=== PATIENT | male | born 1935 | race Caucasian/White ===

== ENCOUNTER → 2019-02-27 | Outpatient (CLI) | payer MEDICARE ==
[~2019-02-27] MED LIST: BIMA2.5D4 OP; BRIM5DRO12 OD; HCTZ12.5T PO; OMEP-83 PO; SAWP1CAP PO; SELE200T11 PO; ZINC50TA49 PO
--- NOTE | 2019-02-27 10:08 | Diagnostic Imaging Report ---
PROCEDURE: CT urinary tract, rule out kidney stone. TECHNIQUE: Multiple contiguous axial images were obtained through the abdomen and pelvis without the use of intravenous contrast. Auto Exposure Controls were utilized during the CT exam to meet ALARA standards for radiation dose reduction. INDICATION: Right flank pain. No prior studies are available for comparison. Imaging through lung bases does show some linear opacities in the right middle lobe and lingula consistent with atelectasis or scarring. The liver and gallbladder are unremarkable. No mass is detected. No biliary ductal dilatation is seen. Pancreas and spleen are unremarkable. Gas and fluid collection adjacent to the 2nd and 3rd portions of the duodenum as well as the 4th portion of the duodenum are noted suggestive of a diverticuli. No adrenal mass is detected. Both kidneys contain parapelvic cysts. There are numerous bilateral nonobstructing renal calculi measuring from approximately 1 mm to 3 mm in size. No definite ureteral calculi or hydronephrosis is seen. Aorta is heavily calcified but non-aneurysmal. Bowel loops are of normal caliber. There is no obstruction. There is diverticulosis of the sigmoid colon but no evidence of acute diverticulitis. Bladder is unremarkable. Prostate gland is enlarged measuring 4.7 x 5.8 cm. No free fluid or fluid collection is identified. Right femur does show some thickened trabecular pattern. Possibility of Paget's cannot be excluded. IMPRESSION: 1. Bilateral parapelvic cysts as well as bilateral nonobstructing nephrolithiasis. No ureteral calculi or hydronephrosis is detected. 2. Uncomplicated diverticulosis. 3. Prostatomegaly. 4. Sclerosis and thickened trabecula involving the right hip and proximal right femur. Paget's disease cannot be excluded. No other significant abnormality is seen. Dictated by: Dictated on workstation # [id number]
== END ==
LOC: RAD FS 09:28
PROVIDERS: ATTEND Nurse Practitioner Family
DX: N20.0 Calculus of kidney (principal); K57.30 Diverticulosis of large intestine without perforation or abscess without bleeding; N40.0 Benign prostatic hyperplasia without lower urinary tract symptoms
CPT/HCPCS: 74176

== ENCOUNTER → 2019-03-19 | Outpatient (CLI) | payer MEDICARE ==
--- NOTE | 2019-03-19 10:00 | Diagnostic Imaging Report ---
INDICATION: Low back pain. COMPARISON: None. FINDINGS: Three views of the lumbar column demonstrate normal alignment. There is no subluxation or fracture. Moderate to severe degenerative changes are seen throughout the disc spaces and facet joints. SI joints are symmetric. There is no osseous lesion. IMPRESSION: Moderate to severe degenerative changes. Dictated by: Dictated on workstation # [id number]
--- NOTE | 2019-03-19 10:13 | Diagnostic Imaging Report ---
Indication: Right shoulder pain. Comparison: None. 3 views of the right shoulder demonstrate mild degenerative changes of the glenohumeral joint. AC joint is intact. There is no fracture, dislocation or osseous lesion. Impression: Mild degenerative joint disease. Dictated by: Dictated on workstation # [id number]
== END ==
LOC: RAD FS 09:01
PROVIDERS: ATTEND Nurse Practitioner
DX: M43.06 Spondylolysis, lumbar region (principal); M19.011 Primary osteoarthritis, right shoulder
CPT/HCPCS: 72100; 73030

== ENCOUNTER → 2019-04-17 | Outpatient (CLI) | payer MEDICARE ==
--- NOTE | 2019-04-17 12:24 | Diagnostic Imaging Report ---
EXAMINATION: Supine abdomen at 11:53 a.m. INDICATION: Nephrolithiasis. Two supine views of the abdomen were obtained. FINDINGS: The previous CT abdomen and pelvis exam of 02/27/2019 noted small nonobstructive calculi within both kidneys but failed to show any evidence for obstruction of either collecting system by calculus. On this exam, there may still be a few punctate calcifications overlying the right kidney. Both kidneys are obscured by overlying bowel gas and fecal material, however. The suspected phleboliths in the pelvis seen on the prior study are again evident and no different. There is no mass or organomegaly. There does appear to be at least a moderate amount of fecal material in the ascending transverse and descending colon. The osseous structures are intact. The degenerative disc and bony disease at L4-L5 and L5-S1 seen previously does not appear to have progressed. IMPRESSION: The minute nonobstructive calculi within the kidneys seen on the previous CT abdomen/pelvis exam are difficult to appreciate on this study. If there is clinical concern regarding an acute obstruction of the collecting system, then repeat CT abdomen/pelvis exam should be obtained. Dictated by: Dictated on workstation # [id number]
== END ==
LOC: RAD FS 11:38
PROVIDERS: ATTEND Urology
DX: N20.0 Calculus of kidney (principal)
CPT/HCPCS: 74018

== ENCOUNTER → 2019-10-22 | Outpatient (CLI) | payer MEDICARE, OTHER ==
--- NOTE | 2019-10-22 11:29 | Diagnostic Imaging Report ---
Indication: Low back pain Lumbar spine AP and lateral views of lumbar spine shows a slight spondylolisthesis at L3-L4 and L4-L5. There is disc space narrowing at L4-L5 and L5-S1. There are osteophytes forming anteriorly and laterally throughout the lumbar spine. There is a very slight curvature of the lumbar spine convex the right. IMPRESSION: Spondylosis deformans. Minimal scoliosis. Degenerative disc changes L4-L5 and L5-S1 with grade 1 spondylolisthesis at L3-L4 and L4-L5. No acute abnormalities seen. Dictated by: Dictated on workstation # [id number]
== END ==
LOC: RAD FS 11:10
PROVIDERS: ATTEND Nurse Practitioner Family
DX: M47.816 Spondylosis without myelopathy or radiculopathy, lumbar region (principal); M51.17 Intervertebral disc disorders with radiculopathy, lumbosacral region; M43.16 Spondylolisthesis, lumbar region
CPT/HCPCS: 72100

== ENCOUNTER → 2019-11-23 | Outpatient (CLI) | payer MEDICARE, OTHER ==
--- NOTE | 2019-11-24 08:32 | Diagnostic Imaging Report ---
PROCEDURE: MRI lumbar spine. TECHNIQUE: Multiplanar, multisequence MRI of the lumbar spine was performed without contrast. INDICATION: Lower back pain. COMPARISON: CT dated 02/27/2019. FINDINGS: Since the previous CT abdomen and pelvis, there has been interval development of infiltrative soft tissue mass within the retroperitoneum of the left upper abdominal quadrant posteriorly. It measures approximately 5.3 x 6.3 cm in maximal axial dimension and extends through the left psoas muscle and into the spinal canal. The mass also extends through the spinal canal into the bilateral neural foramina of L2-L3 through L4-L5. As a result, there is severe spinal canal stenosis. This extends from approximately L2-L3 inferiorly to the L4 vertebral body level. Thecal sac is narrowed to approximately 1.2 mm in AP dimension (image 32, series 5) at the L3-L4 level. There is also significant abnormal marrow signal within several vertebral bodies, but greatest within the L2 vertebral body. Findings are consistent with intraosseous extension. There is no evidence of pathologic fracture. Evaluation of static alignment shows slight grade 1 anterolisthesis at the L3-L4 and L2-L3 levels. There is no evidence of jumped facets. Intervertebral disc heights show mild multilevel narrowing. There is also mild multilevel anterior and posterior disc bulging. Conus terminates at approximately the L1-L2 level. IMPRESSION: 1. Interval development of extensive infiltrative soft tissue mass of the posterior retroperitoneum of the left upper abdominal quadrant extending into the spinal canal of the lumbar spine and resulting in severe multilevel spinal canal stenosis. There is also multilevel bilateral neuroforaminal stenosis as well as significant intraosseous extension of the L2 vertebral body. Primary soft tissue malignancy versus metastatic disease is indeterminate, but the lesion does appear to be in a position amenable to CT-guided biopsy. Report will be called STEPHY Lloyd, 11/24/2019/cb [phone] Report was faxed/called to [facility] c/o George Mann by ronnie at 8:30AM. Dictated by: Dictated on workstation # [id number]
== END ==
LOC: RAD 13:47
PROVIDERS: ATTEND Nurse Practitioner
DX: M48.061 Spinal stenosis, lumbar region without neurogenic claudication (principal); M51.37 Other intervertebral disc degeneration, lumbosacral region; M79.89 Other specified soft tissue disorders
CPT/HCPCS: 72148

== ENCOUNTER → 2019-12-08 | Outpatient (CLI) | payer MEDICARE, OTHER ==
--- NOTE | 2019-12-08 15:30 | Diagnostic Imaging Report ---
INDICATION: B-cell lymphoma, initial staging. TECHNIQUE: The serum blood glucose level at the time of injection was 105 mg/dL. The patient was administered 11.5 mCi of F-18 FDG intravenously in the left antecubital location and PET imaging was performed from the top of the skull to the mid thigh. Noncontrast CT was also performed for attenuation correction and anatomic correlation. COMPARISON: No prior PET/CT study is available for comparison. Correlation is made with the recent MRI lumbar spine from 11/23/2019. FINDINGS: There is symmetric activity throughout the brain. There is a hypermetabolic 15 mm nodule in the right parotid gland with an SUV max of 12.3. Several other areas of increased uptake are identified in the posterior neck and supraclavicular regions bilaterally; however, this appears to be largely muscular. There could be a component of brown fat uptake as well. No definite correlate suspicious lymph nodes at these locations are identified. The mediastinum and lilliam are unremarkable. No pulmonary parenchymal hypermetabolism is identified. There has been significant reduction in the left paraspinous retroperitoneal soft tissue mass seen on a prior MRI of the lumbar spine on 11/23/2019. There is residual left para-aortic central retroperitoneal soft tissue measuring approximately 2.3 cm. This measured approximately 6.3 cm in AP diameter on the prior MRI. The remainder of the abdomen and pelvis demonstrates physiologic activity in the GI and tracts. There is a nonobstructing calculus in the left kidney. There does appear to be significant abnormal hypermetabolism involving soft tissue surrounding the proximal right femur and right hip. The SUV max is approximately 10. The abnormal soft tissue measures approximately 8.2 x 9.2 cm. There is also some activity noted within the right femoral neck and portions of the femoral head. A thickened trabecular pattern is identified at this location. No definite pathologic fracture is seen. IMPRESSION: 1. Hypermetabolic soft tissue nodule in the right parotid gland, perhaps an intraparotid lymph node. 2. Significant decrease in size of the retroperitoneal and left paraspinous soft tissue mass seen on the MRI lumbar spine from 11/23/2019. There is residual abnormal soft tissue in the left periaortic location at the level of the kidneys; however, again this is much improved. 3. Abnormal osseous as well as extraosseous uptake surrounding the right hip, as described. A dedicated MRI of the right hip with and without intravenous contrast would be useful for further characterization. Dictated by: Dictated on workstation # [id number]
== END ==
LOC: CARD 08:41
PROVIDERS: ATTEND Internal Medicine Hematology & Oncology
DX: C85.10 Unspecified B-cell lymphoma, unspecified site (principal); K11.8 Other diseases of salivary glands; R19.09 Other intra-abdominal and pelvic swelling, mass and lump; M79.9 Soft tissue disorder, unspecified
CPT/HCPCS: 78815; 93306; A9552

== ENCOUNTER → 2019-12-16 | Outpatient (CLI) | payer MEDICARE, OTHER ==
[2019-12-16 09:55] LABS: BASOPHILS % (AUTO) 1 % (0-10); EOSINOPHILS % (AUTO) 2 % (0-10); HEMATOCRIT 36 % (40-54); HEMOGLOBIN 12.3 G/DL (13.3-17.7); LYMPHOCYTES % (AUTO) 17 % (12-44); MEAN CORPUSCULAR HEMOGLOBIN 30 PG (25-34); MEAN CORPUSCULAR HGB CONC 34 G/DL (32-36); MEAN CORPUSCULAR VOLUME 89 FL (80-99); MEAN PLATELET VOLUME 12.1 FL (7.4-10.4); MONOCYTES % (AUTO) 12 % (0-12); NEUTROPHILS % (AUTO) 68 % (42-75); PLATELET COUNT 207 10^3/uL (130-400); WHITE BLOOD COUNT 9.4 10^3/uL (4.3-11.0)
[2019-12-16 09:56] LABS: BASOPHILS # (AUTO) 0.1 10^3/uL (0.0-0.1); EOSINOPHILS # (AUTO) 0.1 10^3/uL (0.0-0.3); LYMPHOCYTES # (AUTO) 1.6 X 10^3 (1.0-4.0); MONOCYTES # (AUTO) 1.1 X 10^3 (0.0-1.0); NEUTROPHILS # (AUTO) 6.4 X 10^3 (1.8-7.8)
[2019-12-16 10:40] LABS: BILIRUBIN,TOTAL 0.5 MG/DL (0.1-1.0); CALCIUM 9.5 MG/DL (8.5-10.1); CREATININE SERUM 1.78 MG/DL (0.60-1.30); POTASSIUM 4.2 MMOL/L (3.6-5.0)
[2019-12-16 10:41] LABS: ALBUMIN 3.8 GM/DL (3.2-4.5); TOTAL PROTEIN 6.5 GM/DL (6.4-8.2)
[2019-12-16 22:02] LABS: HEPATITIS C ANTIBODY C Non-Reactive (Non-Reactive)
== END ==
LOC: LAB FS 09:10
PROVIDERS: ATTEND Nurse Practitioner Adult Health
DX: C83.39 Diffuse large B-cell lymphoma, extranodal and solid organ sites (principal)
CPT/HCPCS: 36415; 80053; 80074; 83615; 85025

== ENCOUNTER → 2019-12-28 | Outpatient (CLI) | payer MEDICARE, OTHER ==
[2019-12-28 11:00] LABS: CREATININE SERUM 1.63 MG/DL (0.60-1.30); POTASSIUM 3.7 MMOL/L (3.6-5.0)
[2019-12-28 11:01] LABS: CALCIUM 9.2 MG/DL (8.5-10.1)
== END ==
LOC: LAB FS 09:47
PROVIDERS: ATTEND Nurse Practitioner Adult Health
DX: C83.39 Diffuse large B-cell lymphoma, extranodal and solid organ sites (principal)
CPT/HCPCS: 36415; 80048

== ENCOUNTER → 2019-12-31 | Outpatient (CLI) | payer MEDICARE, OTHER ==
[2019-12-31 12:12] LABS: CALCIUM 9.2 MG/DL (8.5-10.1); CREATININE SERUM 1.77 MG/DL (0.60-1.30); POTASSIUM 4.2 MMOL/L (3.6-5.0)
[2019-12-31 12:13] LABS: BASOPHILS % (AUTO) 1 % (0-10); EOSINOPHILS # (AUTO) 0.1 10^3/uL (0.0-0.3); EOSINOPHILS % (AUTO) 2 % (0-10); HEMATOCRIT 34 % (40-54); HEMOGLOBIN 11.4 G/DL (13.3-17.7); LYMPHOCYTES % (AUTO) 16 % (12-44); MEAN CORPUSCULAR HEMOGLOBIN 30 PG (25-34); MEAN CORPUSCULAR HGB CONC 33 G/DL (32-36); MEAN CORPUSCULAR VOLUME 90 FL (80-99); MEAN PLATELET VOLUME 12.4 FL (7.4-10.4); MONOCYTES # (AUTO) 0.9 X 10^3 (0.0-1.0); MONOCYTES % (AUTO) 15 % (0-12); NEUTROPHILS # (AUTO) 3.7 X 10^3 (1.8-7.8); NEUTROPHILS % (AUTO) 63 % (42-75); PLATELET COUNT 160 10^3/uL (130-400); WHITE BLOOD COUNT 5.9 10^3/uL (4.3-11.0)
[2019-12-31 16:26] LABS: URIC ACID 5.7 MG/DL (2.6-7.2)
== END ==
LOC: LAB FS 09:51
PROVIDERS: ATTEND Nurse Practitioner Adult Health
DX: C85.90 Non-Hodgkin lymphoma, unspecified, unspecified site (principal)
CPT/HCPCS: 36415; 80048; 84550; 85025

== ENCOUNTER → 2020-01-04 | Outpatient (CLI) | payer MEDICARE, OTHER ==
[2020-01-04 10:44] LABS: CALCIUM 8.8 MG/DL (8.5-10.1); CREATININE SERUM 1.83 MG/DL (0.60-1.30)
[2020-01-04 10:48] LABS: BASOPHILS % (AUTO) 0 % (0-10); HEMATOCRIT 34 % (40-54); HEMOGLOBIN 10.9 G/DL (13.3-17.7); LYMPHOCYTES % (AUTO) 7 % (12-44); MEAN CORPUSCULAR HEMOGLOBIN 29 PG (25-34); MEAN CORPUSCULAR HGB CONC 32 G/DL (32-36); MEAN CORPUSCULAR VOLUME 91 FL (80-99); MEAN PLATELET VOLUME 11.9 FL (7.4-10.4); MONOCYTES % (AUTO) 7 % (0-12); NEUTROPHILS % (AUTO) 66 % (42-75); PLATELET COUNT 161 10^3/uL (130-400); WHITE BLOOD COUNT 13.1 10^3/uL (4.3-11.0)
[2020-01-04 10:49] LABS: EOSINOPHILS # (AUTO) 0.1 10^3/uL (0.0-0.3); EOSINOPHILS % (AUTO) 1 % (0-10); MONOCYTES # (AUTO) 0.9 X 10^3 (0.0-1.0); NEUTROPHILS # (AUTO) 8.6 X 10^3 (1.8-7.8)
== END ==
LOC: LAB FS 09:23
PROVIDERS: ATTEND Nurse Practitioner Adult Health
DX: C83.39 Diffuse large B-cell lymphoma, extranodal and solid organ sites (principal)
CPT/HCPCS: 36415; 80048; 84550; 85025

== ENCOUNTER → 2020-01-07 | Outpatient (CLI) | payer MEDICARE, OTHER ==
[2020-01-07 10:51] LABS: CALCIUM 8.9 MG/DL (8.5-10.1); CREATININE SERUM 1.78 MG/DL (0.60-1.30)
== END ==
LOC: LAB FS 09:30
PROVIDERS: ATTEND Nurse Practitioner Adult Health
DX: C83.39 Diffuse large B-cell lymphoma, extranodal and solid organ sites (principal)
CPT/HCPCS: 36415; 80048

== ENCOUNTER → 2020-01-11 | Outpatient (CLI) | payer MEDICARE, OTHER ==
[2020-01-11 10:44] LABS: HEMATOCRIT 36 % (40-54); HEMOGLOBIN 11.6 G/DL (13.3-17.7); MEAN CORPUSCULAR HEMOGLOBIN 30 PG (25-34); MEAN CORPUSCULAR VOLUME 92 FL (80-99); WHITE BLOOD COUNT 7.4 10^3/uL (4.3-11.0)
[2020-01-11 10:45] LABS: BASOPHILS # (AUTO) 0.2 10^3/uL (0.0-0.1); BASOPHILS % (AUTO) 3 % (0-10); EOSINOPHILS # (AUTO) 0.1 10^3/uL (0.0-0.3); EOSINOPHILS % (AUTO) 2 % (0-10); LYMPHOCYTES # (AUTO) 1.1 X 10^3 (1.0-4.0); LYMPHOCYTES % (AUTO) 15 % (12-44); MEAN CORPUSCULAR HGB CONC 33 G/DL (32-36); MEAN PLATELET VOLUME 12.4 FL (7.4-10.4); MONOCYTES # (AUTO) 0.7 X 10^3 (0.0-1.0); MONOCYTES % (AUTO) 9 % (0-12); NEUTROPHILS # (AUTO) 5.3 X 10^3 (1.8-7.8); NEUTROPHILS % (AUTO) 71 % (42-75); PLATELET COUNT 108 10^3/uL (130-400)
[2020-01-11 10:56] LABS: CALCIUM 8.8 MG/DL (8.5-10.1); CREATININE SERUM 1.6 MG/DL (0.60-1.30); POTASSIUM 4.4 MMOL/L (3.6-5.0)
== END ==
LOC: LAB FS 10:18
PROVIDERS: ATTEND Nurse Practitioner Adult Health
DX: C83.39 Diffuse large B-cell lymphoma, extranodal and solid organ sites (principal)
CPT/HCPCS: 36415; 80048; 84550; 85025

== ENCOUNTER → 2020-01-12 | Outpatient (CLI) | payer MEDICARE, OTHER ==
[2020-01-12 10:41] LABS: BILIRUBIN,URINE NEGATIVE (NEGATIVE); CLARITY,URINE CLEAR; COLOR,URINE YELLOW; GLUCOSE, URINE (UA) NEGATIVE (NEGATIVE); KETONES,URINE NEGATIVE (NEGATIVE); LEUKOCYTE ESTERASE ,URINE NEGATIVE (NEGATIVE); NITRITE,URINE NEGATIVE (NEGATIVE); PH,URINE 6.5 (5-9); PROTEIN,URINE NEGATIVE (NEGATIVE)
[2020-01-12 10:42] LABS: SQUAMOUS EPITHELIAL CELL,UR RARE /HPF
== END ==
LOC: LAB FS 10:27
PROVIDERS: ATTEND Nurse Practitioner Adult Health
DX: R35.0 Frequency of micturition (principal)
CPT/HCPCS: 81000

== ENCOUNTER → 2020-01-21 | Outpatient (CLI) | payer MEDICARE, OTHER ==
[2020-01-21 11:39] LABS: CREATININE SERUM 1.77 MG/DL (0.60-1.30); POTASSIUM 4.2 MMOL/L (3.6-5.0)
[2020-01-21 11:40] LABS: BASOPHILS # (AUTO) 0.1 10^3/uL (0.0-0.1); BASOPHILS % (AUTO) 1 % (0-10); EOSINOPHILS # (AUTO) 0.1 10^3/uL (0.0-0.3); EOSINOPHILS % (AUTO) 1 % (0-10); HEMATOCRIT 32 % (40-54); HEMOGLOBIN 10.5 G/DL (13.3-17.7); LYMPHOCYTES # (AUTO) 1.3 X 10^3 (1.0-4.0); LYMPHOCYTES % (AUTO) 7 % (12-44); MEAN CORPUSCULAR HEMOGLOBIN 30 PG (25-34); MEAN CORPUSCULAR HGB CONC 33 G/DL (32-36); MEAN CORPUSCULAR VOLUME 89 FL (80-99); MEAN PLATELET VOLUME 12.3 FL (7.4-10.4); MONOCYTES # (AUTO) 1.6 X 10^3 (0.0-1.0); MONOCYTES % (AUTO) 9 % (0-12); NEUTROPHILS % (AUTO) 79 % (42-75); PLATELET COUNT 174 10^3/uL (130-400); WHITE BLOOD COUNT 17.6 10^3/uL (4.3-11.0)
== END ==
LOC: LAB FS 09:33
PROVIDERS: ATTEND Nurse Practitioner Adult Health
DX: C85.90 Non-Hodgkin lymphoma, unspecified, unspecified site (principal); I10 Essential (primary) hypertension
CPT/HCPCS: 36415; 80048; 85025

== ENCOUNTER → 2020-01-27 | Outpatient (CLI) | payer MEDICARE, OTHER ==
[2020-01-27 09:23] LABS: WHITE BLOOD COUNT 12.6 10^3/uL (4.3-11.0)
[2020-01-27 09:24] LABS: HEMATOCRIT 35 % (40-54); HEMOGLOBIN 11.1 G/DL (13.3-17.7); MEAN CORPUSCULAR HEMOGLOBIN 30 PG (25-34); MEAN CORPUSCULAR HGB CONC 32 G/DL (32-36); MEAN CORPUSCULAR VOLUME 92 FL (80-99); MEAN PLATELET VOLUME 10.9 FL (7.4-10.4); PLATELET COUNT 163 10^3/uL (130-400)
[2020-01-27 09:25] LABS: BASOPHILS # (AUTO) 0.1 10^3/uL (0.0-0.1); BASOPHILS % (AUTO) 1 % (0-10); EOSINOPHILS # (AUTO) 0.2 10^3/uL (0.0-0.3); EOSINOPHILS % (AUTO) 2 % (0-10); LYMPHOCYTES # (AUTO) 1.1 X 10^3 (1.0-4.0); LYMPHOCYTES % (AUTO) 9 % (12-44); MONOCYTES # (AUTO) 0.9 X 10^3 (0.0-1.0); MONOCYTES % (AUTO) 7 % (0-12); NEUTROPHILS # (AUTO) 9.4 X 10^3 (1.8-7.8); NEUTROPHILS % (AUTO) 74 % (42-75)
[2020-01-27 09:48] LABS: POTASSIUM 3.8 MMOL/L (3.6-5.0)
[2020-01-27 09:49] LABS: CREATININE SERUM 1.88 MG/DL (0.60-1.30)
== END ==
LOC: LAB FS 09:03
PROVIDERS: ATTEND Nurse Practitioner Adult Health
DX: C83.39 Diffuse large B-cell lymphoma, extranodal and solid organ sites (principal); I10 Essential (primary) hypertension
CPT/HCPCS: 36415; 80048; 85025

== ENCOUNTER 2020-02-04 10:34 | Outpatient (RCR) | payer MEDICARE, OTHER ==
[2019-12-24 11:35] LABS: CALCIUM 8.6 MG/DL (8.5-10.1); CREATININE SERUM 1.46 MG/DL (0.60-1.30); POTASSIUM 3.8 MMOL/L (3.6-5.0); URIC ACID 4.7 MG/DL (2.6-7.2)
[2020-01-14 10:08] LABS: BASOPHILS # (AUTO) 0.1 10^3/uL (0.0-0.1); BASOPHILS % (AUTO) 1 % (0-10); EOSINOPHILS # (AUTO) 0.1 10^3/uL (0.0-0.3); EOSINOPHILS % (AUTO) 1 % (0-10); HEMATOCRIT 34 % (40-54); LYMPHOCYTES # (AUTO) 1.2 10^3/uL (1.0-4.0); LYMPHOCYTES % (AUTO) 18 % (12-44); MEAN CORPUSCULAR HEMOGLOBIN 29 pg (25-34); MEAN CORPUSCULAR HGB CONC 32 g/dL (32-36); MEAN CORPUSCULAR VOLUME 91 fL (80-99); MEAN PLATELET VOLUME 11.7 fL (9.0-12.2); MONOCYTES # (AUTO) 0.7 10^3/uL (0.0-1.0); MONOCYTES % (AUTO) 11 % (0-12); NEUTROPHILS # (AUTO) 4.4 10^3/uL (1.8-7.8); NEUTROPHILS % (AUTO) 65 % (42-75); PLATELET COUNT 208 10^3/uL (130-400); WHITE BLOOD COUNT 6.8 10^3/uL (4.3-11.0)
[2020-01-14 10:28] LABS: ALBUMIN 3.7 GM/DL (3.2-4.5); BILIRUBIN,TOTAL 0.4 MG/DL (0.1-1.0); CREATININE SERUM 1.64 MG/DL (0.60-1.30); TOTAL PROTEIN 6.1 GM/DL (6.4-8.2); URIC ACID 7.1 MG/DL (2.6-7.2)
[~2020-02-04] VITALS: Ht 177.8 cm; Wt 76.2 kg
[~2020-02-04 10:34] MED LIST changes: +ACETAMINOPHEN 325 MG TAB (TYLENOL) CANCER CTR PO PRN; +CYCLOPHOSPHAMIDE INJECTION 800 MG in NS (IVPB) CANCER CENTER 250 ML IV SCH; +CYCLOPHOSPHAMIDE IV SCH; +FOSAPREPITANT (CANCER CENTER) 150 MG in NS (IVPB) CANCER CENTER ONLY 150 ML IV SCH; +NS IV 1000 ML (CANCER CTR) IV SCH; +NS IV SCH; +PEGFILGRASTIM 6 MG/0.6 ML ONPRO KIT SQ SCH; +PEGFILGRASTIM 6 MG/0.6ML NEULASTA SC SCH; +RITUXIMAB-ABBS 500 MG, RITUXIMAB-ABBS 200 MG in NS (IVPB) CANCER CENTER ONLY 150 ML IV SCH; +RITUXIMAB-ABBS 500 MG, RITUXIMAB-ABBS 300 MG in NS (IVPB) CANCER CENTER 186 ML IV SCH; +diphenhydrAMINE 25 MG TAB (BENADRYL) CANCER CENTER PO ONE; +diphenhydrAMINE 50 MG/ML INJ (CANCER CENTER) IV PRN; +vinCRIStine SULFATE 1 MG in NS (IVPB) CANCER CENTER 50 ML IV SCH
[2020-02-04 11:20] LABS: BASOPHILS # (AUTO) 0.1 10^3/uL (0.0-0.1); BASOPHILS % (AUTO) 1 % (0-10); EOSINOPHILS # (AUTO) 0.1 10^3/uL (0.0-0.3); EOSINOPHILS % (AUTO) 1 % (0-10); HEMATOCRIT 32 % (40-54); HEMOGLOBIN 10.5 g/dL (13.3-17.7); LYMPHOCYTES # (AUTO) 1.2 10^3/uL (1.0-4.0); LYMPHOCYTES % (AUTO) 19 % (12-44); MEAN CORPUSCULAR HEMOGLOBIN 30 pg (25-34); MEAN CORPUSCULAR HGB CONC 33 g/dL (32-36); MEAN CORPUSCULAR VOLUME 92 fL (80-99); MEAN PLATELET VOLUME 11.1 fL (9.0-12.2); MONOCYTES # (AUTO) 0.7 10^3/uL (0.0-1.0); MONOCYTES % (AUTO) 10 % (0-12); NEUTROPHILS # (AUTO) 4.3 10^3/uL (1.8-7.8); NEUTROPHILS % (AUTO) 67 % (42-75); PLATELET COUNT 197 10^3/uL (130-400); WHITE BLOOD COUNT 6.5 10^3/uL (4.3-11.0)
[2020-02-04 11:40] LABS: ALBUMIN 3.6 GM/DL (3.2-4.5); BILIRUBIN,TOTAL 0.4 MG/DL (0.1-1.0); CREATININE SERUM 1.61 MG/DL (0.60-1.30); POTASSIUM 3.9 MMOL/L (3.6-5.0)
[2020-02-04] MEDS ORDERED: diphenhydrAMINE 25 MG TAB (BENADRYL) CANCER CENTER PO ONE (11:49)
== END 2020-03-02 | disposition home or self-care (01) ==
LOC: ONC 10:34
PROVIDERS: ATTEND Internal Medicine Hematology & Oncology
DX: C85.10 Unspecified B-cell lymphoma, unspecified site (principal); M48.061 Spinal stenosis, lumbar region without neurogenic claudication; I10 Essential (primary) hypertension; K21.9 Gastro-esophageal reflux disease without esophagitis; Z98.890 Other specified postprocedural states
CPT/HCPCS: 36591; 80048; 80053; 83615; 84550; 85025; 96367; 96375; 96377; 96411; 96413; 96415; 96417; 99213; 99214; J2505

== ENCOUNTER 2020-02-11 09:48 | Outpatient (RCR) | payer MEDICARE, OTHER ==
[~2020-02-11 09:48] MED LIST changes: -ACETAMINOPHEN 325 MG TAB (TYLENOL) CANCER CTR PO PRN; -CYCLOPHOSPHAMIDE INJECTION 800 MG in NS (IVPB) CANCER CENTER 250 ML IV SCH; -CYCLOPHOSPHAMIDE IV SCH; -FOSAPREPITANT (CANCER CENTER) 150 MG in NS (IVPB) CANCER CENTER ONLY 150 ML IV SCH; -NS IV 1000 ML (CANCER CTR) IV SCH; -NS IV SCH; -PEGFILGRASTIM 6 MG/0.6 ML ONPRO KIT SQ SCH; -PEGFILGRASTIM 6 MG/0.6ML NEULASTA SC SCH; -RITUXIMAB-ABBS 500 MG, RITUXIMAB-ABBS 200 MG in NS (IVPB) CANCER CENTER ONLY 150 ML IV SCH; -RITUXIMAB-ABBS 500 MG, RITUXIMAB-ABBS 300 MG in NS (IVPB) CANCER CENTER 186 ML IV SCH; -diphenhydrAMINE 25 MG TAB (BENADRYL) CANCER CENTER PO ONE; -diphenhydrAMINE 50 MG/ML INJ (CANCER CENTER) IV PRN; -vinCRIStine SULFATE 1 MG in NS (IVPB) CANCER CENTER 50 ML IV SCH
[2020-02-11 10:24] LABS: CALCIUM 9.1 MG/DL (8.5-10.1); CREATININE SERUM 1.71 MG/DL (0.60-1.30); POTASSIUM 4.2 MMOL/L (3.6-5.0)
[2020-02-11 10:25] LABS: HEMOGLOBIN 10.9 G/DL (13.3-17.7); MEAN PLATELET VOLUME 12.1 FL (7.4-10.4); WHITE BLOOD COUNT 12.7 10^3/uL (4.3-11.0)
[2020-03-11] MEDS ORDERED: DEXA6TAB PO (13:40)
[2020-03-11] MEDS ORDERED: IVER3TAB2 PO (13:40)
[2020-03-11] MEDS ORDERED: AZIT250T12 PO (13:40)
[2020-03-11] MEDS ORDERED: RT-ALBUINH IH (13:40)
== END 2020-05-11 | disposition home or self-care (01) ==
LOC: LAB FS 09:48
PROVIDERS: ATTEND Internal Medicine Hematology & Oncology
DX: C83.30 Diffuse large B-cell lymphoma, unspecified site (principal)
CPT/HCPCS: 36415; 80048; 85027

== ENCOUNTER → 2020-02-18 | Outpatient (CLI) | payer MEDICARE, OTHER ==
[2020-02-18 11:30] LABS: HEMOGLOBIN 10.4 G/DL (13.3-17.7); WHITE BLOOD COUNT 5.6 10^3/uL (4.3-11.0)
[2020-02-18 11:31] LABS: MEAN PLATELET VOLUME 11.3 FL (7.4-10.4)
[2020-02-18 11:47] LABS: POTASSIUM 3.6 MMOL/L (3.6-5.0)
[2020-02-18 11:48] LABS: CALCIUM 8.9 MG/DL (8.5-10.1); CREATININE SERUM 1.66 MG/DL (0.60-1.30)
== END ==
LOC: LAB FS 11:08
PROVIDERS: ATTEND Internal Medicine Hematology & Oncology
DX: C83.30 Diffuse large B-cell lymphoma, unspecified site (principal)
CPT/HCPCS: 36415; 80048; 85027

== ENCOUNTER → 2020-02-23 | Outpatient (CLI) | payer MEDICARE, OTHER ==
--- NOTE | 2020-02-24 09:57 | Diagnostic Imaging Report ---
INDICATION: Non-Hodgkin's lymphoma. This study is performed for subsequent treatment strategy and response to treatment. TECHNIQUE: The serum blood glucose level at the time of injection was 98 mg/dL. The patient was administered 14 mCi of F-18 FDG intravenously in the left antecubital location and PET imaging was performed from the top of the skull to the mid thighs. A noncontrast CT was also performed for attenuation correction and anatomic correlation. COMPARISON: Prior PET/CT study from 12/08/2019. FINDINGS: There is symmetric activity throughout the brain. The hypermetabolic mass within the right parotid gland is again noted with an SUV max of 14. The low-level hypermetabolic lymph nodes in the posterior cervical chain on the prior exam are not appreciated on today's exam. No mediastinal or hilar hypermetabolism is identified. No pulmonary parenchymal hypermetabolism is identified. Physiologic activity throughout the GI and tracts of the abdomen and pelvis is noted. The previously noted hypermetabolism surrounding the right hip is no longer appreciated. IMPRESSION: Hypermetabolic mass in the right parotid gland, similar to the examination from December. No additional metabolic foci are seen. Specifically, the soft tissue in the left para-aortic location noted on the prior PET/CT study is no longer appreciated. Dictated by: Dictated on workstation # [id number]
== END ==
LOC: RAD 08:15
PROVIDERS: ATTEND Internal Medicine Hematology & Oncology
DX: C83.90 Non-follicular (diffuse) lymphoma, unspecified, unspecified site (principal); K11.8 Other diseases of salivary glands
CPT/HCPCS: 78815; A9552

== ENCOUNTER → 2020-02-25 | Outpatient (CLI) | payer MEDICARE, OTHER ==
[2020-02-25 11:03] LABS: HEMOGLOBIN 10.8 G/DL (13.3-17.7); MEAN PLATELET VOLUME 11.1 FL (7.4-10.4); WHITE BLOOD COUNT 5.9 10^3/uL (4.3-11.0)
[2020-02-25 11:29] LABS: CALCIUM 9.1 MG/DL (8.5-10.1); CREATININE SERUM 1.66 MG/DL (0.60-1.30); POTASSIUM 3.7 MMOL/L (3.6-5.0)
== END ==
LOC: LAB FS 10:47
PROVIDERS: ATTEND Internal Medicine Hematology & Oncology
DX: C83.30 Diffuse large B-cell lymphoma, unspecified site (principal)
CPT/HCPCS: 36415; 80048; 85027

== ENCOUNTER 2020-03-11 13:09 | Emergency (ER) | payer MEDICARE, OTHER ==
[~2020-03-11] VITALS: Ht 177.8 cm; Wt 72.5 kg
[2020-03-11] MEDS ORDERED: AZIT250T12 PO (13:40)
[2020-03-11] MEDS ORDERED: DEXA6TAB PO (13:40)
[2020-03-11] MEDS ORDERED: RT-ALBUINH IH (13:40)
[2020-03-11] MEDS ORDERED: IVER3TAB2 PO (13:40)
--- NOTE | 2020-03-11 13:42 | ED Respiratory ---
General Chief Complaint: Respiratory Problems Stated Complaint: SOB Nursing Triage Note: Patient reports he began having a cough, fever, and shortness of breath 9 days ago, tested positive for COVID 9 days ago. He reports he had a chest x-ray done at the [facility] clinic yesterday, reports his PCP called him today and told him he had pneumonia and to come to the ED for evaluation. History of Present Illness Date Seen by Provider: Mar 11, 2020 Time Seen by Provider: 13:30 Initial Comments 84-year-old male presents by private vehicle to the ER with complaint of shortness of air. Patient was diagnosed with COVID-19 over a week ago and has been on no medication since. He has had home oxygen saturation monitoring which his noted to be dropping in the 80 percent range and called his PCP and was advised to come to the ER. On arrival he is without complaint. His vital signs are stable and his oxygen saturation is 94 percent on room air. Allergies and Home Medications Allergies Coded Allergies: No Known Drug Allergies (Unverified , 01/11/14) Home Medications Albuterol Sulfate 1 Puff Puff, 2 PUFF IH Q4H 1 PUFF = 90 MCG Prescribed by: CARY CAREY on 03/11/20 1340 Azithromycin 250 Mg Tablet, 250 MG PO UD TAKE 2 TABLETS ON DAY ONE THEN TAKE 1 TABLET DAILY FOR FOUR MORE DAYS Prescribed by: CARY CAREY on 03/11/20 1340 Bimatoprost 2.5 Ml Drops, 1 DROP OP DAILY, (Reported) Brimonidine Tartrate 5 Ml Drops, 1 DROP OD DAILY, (Reported) Dexamethasone 6 Mg Tablet, 6 MG PO DAILY Prescribed by: CARY CAREY on 03/11/20 1340 Hydrochlorothiazide 12.5 Mg Cap, 12.5 MG PO DAILY, (Reported) Ivermectin 3 Mg Tablet, 3 MG PO DAILY PRN 4 tabs po today, repeat 4 tabs po in 3 days Prescribed by: CARY CAREY on 03/11/20 1340 Omeprazole Magnesium 20 Mg Capsule.dr, 20 MG PO EVERY OTHER DAY, (Reported) Sawpalmtofrtxt/Zinc Picolinate 1 Each Capsule, 1 EACH PO DAILY, (Reported) Selenomethionine 200 Mcg Tablet, 200 MCG PO DAILY, (Reported) Zinc Amino Acid Chelate 50 Mg Tablet, 50 MG PO DAILY, (Reported) Patient Home Medication List Home Medication List Reviewed: Yes Review of Systems Review of Systems Constitutional: No chills, No dizziness, No fever, No malaise, No weakness EENTM: no symptoms reported Respiratory: cough, dyspnea on exertion; No stridor, No wheezing Cardiovascular: No chest pain, No edema, No palpitations Gastrointestinal: No abdominal pain, No loss of appetite, No nausea, No vomiting Musculoskeletal: No muscle pain, No muscle cramps Skin: No change in color, No rash Past Psilmrn-Nqprbp-Ndymyc Hx Past Med/Social Hx: Reviewed Nursing Past Med/Soc Hx Patient Social History Alcohol Use: Denies Use Recreational Drug Use: No 2nd Hand Smoke Exposure: No Recent Foreign Travel: No Contact w/Someone Who Travel: No Recent Infectious Disease Expo: No Recent Hopitalizations: No Physical Abuse: No Sexual Abuse: No Mistreated: No Fear: No Past Medical History Surgeries: Yes (CATARACTS X2, HERNIA, ESOPHAGEAL OBSTRUCTION REMOVAL-MULTIPLE) Respiratory: No Cardiac: Yes Neurological: No Genitourinary: No Gastrointestinal: No Musculoskeletal: Yes (ACHY MUSCLES) Endocrine: No HEENT: No Cancer: Yes Lymphoma Did You Recieve Any Treatments: Yes What Type of Treatment Did You: Chemotherapy Psychosocial: No Integumentary: No Blood Disorders: No Physical Exam Vital Signs - First Documented 03/11/20 13:10 Temp 37.3 Pulse 87 Resp 18 B/P (MAP) 124/77 (93) Pulse Ox 93 O2 Delivery Room Air Capillary Refill : Less Than 3 Seconds Height: 5'10.00" Weight: 180lbs. oz. 81.797649rf; 22.00 BMI Method: General Appearance: WD/WN, no apparent distress HEENT: PERRL/EOMI, normal ENT inspection Neck: non-tender, supple Respiratory: chest non-tender, lungs clear, normal breath sounds, no respiratory distress, no accessory muscle use Cardiovascular: regular rate, rhythm, no edema, no JVD Gastrointestinal: non tender, soft Extremities: non-tender, no pedal edema Neurologic/Psychiatric: no motor/sensory deficits, alert, normal mood/affect, oriented x 3 Skin: normal color, warm/dry Progress/Results/Core Measures Suspected Sepsis Recent Fever Within 48 Hours: Yes Infection Criteria Present: Documented Infection New/Unexplained Altered Menta: No Sepsis Screen: No Definite Risk SIRS Temperature: Pulse: 87 Respiratory Rate: 18 Blood Pressure 124 /77 Mean: 93 Results/Orders My Orders Orders - CARY CAREY DO Chest 1 View Ap/Pa Only (03/11/20 13:34) Vital Signs/I&O 03/11/20 13:10 Temp 37.3 Pulse 87 Resp 18 B/P (MAP) 124/77 (93) Pulse Ox 93 O2 Delivery Room Air Capillary Refill : Less Than 3 Seconds Blood Pressure Mean: 93 Progress Note : Progress Note Patient well-appearing, no acute distress, no respiratory distress. Normal vital signs with oxygen saturations 92 percent and greater on room air. Chest x-ray without significant pneumonia, however is consistent with COVID-19 patchy infiltrates. Prescriptions written and encouraged to follow-up with PCP for any other questions or problems, otherwise follow-up in the nearest ER for progression of any respiratory symptoms. Departure Impression Primary Impression: COVID-19 Disposition: 01 HOME, SELF-CARE Condition: Stable Departure-Patient Inst. Decision time for Depature: 13:38 Referrals: JOE CHAPPELL APRN (PCP) Primary Care Physician [facility] (Family) Primary Care Physician Patient Instructions: Coronavirus Disease 2019 (COVID-19) ED Add. Discharge Instructions: take the following vitamins for the next 4 weeks: Vitamin D 4000iu daily Vitamin C 1000mg twice daily Zinc 100mg daily Melatonin 10mg at bedtime Call your primary care provider for any further questions related to your illness. Return to the ER for any worsening symptoms All discharge instructions reviewed with patient and/or family. Voiced understanding. Scripts Azithromycin (Azithromycin) 250 Mg Tablet 250 MG PO UD, #6 TAB TAKE 2 TABLETS ON DAY ONE THEN TAKE 1 TABLET DAILY FOR FOUR MORE DAYS Prov: NALLELYSTCARY ORTIZ DO 03/11/20 Albuterol Sulfate (PROAIR HFA) 1 Puff Puff 2 PUFF IH Q4H, #1 PUFF 1 PUFF = 90 MCG Prov: ROVENSTINECARY L DO 03/11/20 Dexamethasone (Dexamethasone) 6 Mg Tablet 6 MG PO DAILY for 7 Days, #7 TAB Prov: SRIKANTHVENSTINECARY DO 03/11/20 Ivermectin (Ivermectin) 3 Mg Tablet 3 MG PO DAILY PRN, #8 TAB 4 tabs po today, repeat 4 tabs po in 3 days Prov: CARY CAREY DO 03/11/20 CARY CAREY DO Mar 11, 2020 13:42
--- NOTE | 2020-03-11 13:56 | Diagnostic Imaging Report ---
HISTORY: Shortness of air. TECHNIQUE: Frontal view of the chest. COMPARISON: None FINDINGS: Lung volumes are large. No focal consolidation is seen. There is no pleural effusion or pneumothorax. The cardiac silhouette is normal in size. There is aortic atherosclerosis. The right Port-A-Cath tip projects over the SVC. IMPRESSION: 1. Large lung volumes with no acute pulmonary abnormality seen. Dictated by: Dictated on workstation # [id number]
[2020-03-11 14:15] VITALS: BP 118/63
== END 2020-03-11 14:15 | disposition home or self-care (01) ==
LOC: EDUNIT# 13:09 → ER FS 13:11
DX: U07.1 COVID-19 (principal); Z85.79 Personal history of other malignant neoplasms of lymphoid, hematopoietic and related tissues
CPT/HCPCS: 71045

== ENCOUNTER 2020-03-16 12:10 | Emergency (ER) | payer MEDICARE, OTHER ==
[~2020-03-16] VITALS: Ht 177.8 cm; Wt 72.5 kg
[~2020-03-16 12:10] MED LIST changes: +AZIT250T12 PO; +DEXA6TAB PO; +IVER3TAB2 PO; +RT-ALBUINH IH
--- NOTE | 2020-03-16 12:28 | ED Respiratory ---
General Chief Complaint: Respiratory Problems Stated Complaint: SOB; COVID+ Source: patient Exam Limitations: no limitations History of Present Illness Date Seen by Provider: Mar 16, 2020 Time Seen by Provider: 12:27 Initial Comments 84-year-old male presents with "I got COVID" and states she's not feeling well. Denies chest pain, but intermittent shortness of air. Normal appetite without nausea vomiting. Treated (myself) 5 days ago with : ivermectin, azithromycin, dexamethasone and OTC's (Vit D, Zinc etc) Allergies and Home Medications Allergies Coded Allergies: No Known Drug Allergies (Unverified , 01/11/14) Home Medications Albuterol Sulfate 1 Puff Puff, 2 PUFF IH Q4H 1 PUFF = 90 MCG Prescribed by: CARY CAREY on 03/11/20 1340 Azithromycin 250 Mg Tablet, 250 MG PO UD TAKE 2 TABLETS ON DAY ONE THEN TAKE 1 TABLET DAILY FOR FOUR MORE DAYS Prescribed by: CARY CAREY on 03/11/20 1340 Bimatoprost 2.5 Ml Drops, 1 DROP OP DAILY, (Reported) Brimonidine Tartrate 5 Ml Drops, 1 DROP OD DAILY, (Reported) Dexamethasone 6 Mg Tablet, 6 MG PO DAILY Prescribed by: CARY CAREY on 03/11/20 1340 Hydrochlorothiazide 12.5 Mg Cap, 12.5 MG PO DAILY, (Reported) Ivermectin 3 Mg Tablet, 3 MG PO DAILY PRN 4 tabs po today, repeat 4 tabs po in 3 days Prescribed by: CARY CAREY on 03/11/20 1340 Omeprazole Magnesium 20 Mg Capsule.dr, 20 MG PO EVERY OTHER DAY, (Reported) Sawpalmtofrtxt/Zinc Picolinate 1 Each Capsule, 1 EACH PO DAILY, (Reported) Selenomethionine 200 Mcg Tablet, 200 MCG PO DAILY, (Reported) Zinc Amino Acid Chelate 50 Mg Tablet, 50 MG PO DAILY, (Reported) Patient Home Medication List Home Medication List Reviewed: Yes Review of Systems Review of Systems Constitutional: chills; No dizziness, No fever; malaise, weakness Respiratory: cough, short of breath; No stridor, No wheezing Cardiovascular: No chest pain, No edema, No palpitations, No syncope Gastrointestinal: No abdominal pain, No loss of appetite, No nausea, No vomiting Musculoskeletal: No back pain, No joint pain, No neck pain Skin: No change in color, No rash Psychiatric/Neurological: Denies Numbness, Denies Paresthesia, Denies Seizure; Weakness Past Vuxhykq-Frnpod-Bbndqc Hx Past Med/Social Hx: Reviewed Nursing Past Med/Soc Hx Patient Social History 2nd Hand Smoke Exposure: No Recent Hopitalizations: No Past Medical History Surgeries: Yes (CATARACTS X2, HERNIA, ESOPHAGEAL OBSTRUCTION REMOVAL-MULTIPLE) Respiratory: No Cardiac: Yes Neurological: No Genitourinary: No Gastrointestinal: No Musculoskeletal: Yes (ACHY MUSCLES) Endocrine: No HEENT: No Cancer: Yes Lymphoma Did You Recieve Any Treatments: Yes What Type of Treatment Did You: Chemotherapy Psychosocial: No Integumentary: No Blood Disorders: No Physical Exam Vital Signs - First Documented 03/16/20 12:20 Temp 37.9 Pulse 98 Resp 24 B/P (MAP) 149/82 (104) Pulse Ox 100 O2 Delivery Room Air Capillary Refill : Height: 5'10.00" Weight: 180lbs. oz. 81.587784ui; 22.00 BMI Method: General Appearance: WD/WN, no apparent distress HEENT: PERRL/EOMI, normal ENT inspection Neck: non-tender, supple Respiratory: chest non-tender, lungs clear, normal breath sounds, no respiratory distress, no accessory muscle use Cardiovascular: regular rate, rhythm, no edema, no gallop, no JVD Gastrointestinal: normal bowel sounds, non tender, soft Extremities: normal range of motion, non-tender, normal inspection, no pedal edema Neurologic/Psychiatric: no motor/sensory deficits, alert, normal mood/affect Skin: normal color, warm/dry Progress/Results/Core Measures Suspected Sepsis SIRS Temperature: Pulse: Respiratory Rate: Laboratory Tests 03/16/20 12:55: White Blood Count 9.7 Blood Pressure / Mean: Laboratory Tests 03/16/20 12:55: Platelet Count 202 Results/Orders Lab Results Laboratory Tests Test 03/16/20 12:55 Range/Units White Blood Count 9.7 4.3-11.0 10^3/uL Red Blood Count 4.21 L 4.35-5.85 10^6/uL Hemoglobin 12.3 L 13.3-17.7 G/DL Hematocrit 36 L 40-54 % Mean Corpuscular Volume 86 80-99 FL Mean Corpuscular Hemoglobin 29 25-34 PG Mean Corpuscular Hemoglobin Concent 34 32-36 G/DL Red Cell Distribution Width 14.2 10.0-14.5 % Platelet Count 202 130-400 10^3/uL Mean Platelet Volume 11.1 H 7.4-10.4 FL Immature Granulocyte % (Auto) 0 % Neutrophils (%) (Auto) 86 H 42-75 % Lymphocytes (%) (Auto) 6 L 12-44 % Monocytes (%) (Auto) 7 0-12 % Eosinophils (%) (Auto) 0 0-10 % Basophils (%) (Auto) 0 0-10 % Neutrophils # (Auto) 8.3 H 1.8-7.8 X 10^3 Lymphocytes # (Auto) 0.6 L 1.0-4.0 X 10^3 Monocytes # (Auto) 0.7 0.0-1.0 X 10^3 Eosinophils # (Auto) 0.0 0.0-0.3 10^3/uL Basophils # (Auto) 0.0 0.0-0.1 10^3/uL Immature Granulocyte # (Auto) 0.0 0.0-0.1 10^3/uL My Orders Orders - [facility] DO Ed Iv/Invasive Line Start (03/16/20 12:39) Cbc With Automated Diff (03/16/20 12:39) Comprehensive Metabolic Panel (03/16/20 12:39) Troponin I Fs (03/16/20 12:39) Chest 1 View Ap/Pa Only (03/16/20 12:39) Ekg Tracing (03/16/20 12:39) Manual Differential (03/16/20 12:55) Vital Signs/I&O 03/16/20 12:20 Temp 37.9 Pulse 98 Resp 24 B/P (MAP) 149/82 (104) Pulse Ox 100 O2 Delivery Room Air Capillary Refill : ECG Initial ECG Impression Date: Mar 16, 2020 Initial ECG Impression Time: 13:00 Initial ECG Rate: 98 Initial ECG Rhythm: Normal Sinus Initial ECG Intervals: Normal Initial ECG Impression: Normal Initial ECG Comparisson: No Previous ECG Available Diagnostic Imaging Diagonstic Imaging: Xray Comments NDICATION: Dyspnea. Single portable AP view of the chest is obtained with comparison made to study of 03/11/2020. Overall heart size and pulmonary vascularity remain within normal limits. There are patchy peripheral densities in the lower half of both lungs which may represent groundglass pneumonitis. There is no evidence of pneumothorax or definite pleural fluid. IMPRESSION: Mild patchy groundglass densities involving the lower lobes to greatest extent likely represent areas of pneumonitis. Dictated on workstation # [id number] Dict: 03/16/20 1259 Trans: 03/16/20 1304 [facility] [id number] Interpreted by: NILTON FARAH MD Electronically signed by: Departure Impression Primary Impression: COVID-19 Disposition: 01 HOME, SELF-CARE Condition: Stable Departure-Patient Inst. Decision time for Depature: 13:32 Referrals: JOE CHAPPELL APRN (PCP) Primary Care Physician [facility] (Family) Primary Care Physician Add. Discharge Instructions: Continue taking: Vitamin D 4,000IU daily Vitamin C 1,000mg twice daily Zinc 100mg twice daily Melatonin 10mg at bedtime Call your PCP for any further questions regarding care for Covid-19. Return to the nearest ER if your symptoms get progressively worse. All discharge instructions reviewed with patient and/or family. Voiced understanding. CARY CAREY DO Mar 16, 2020 12:27
--- NOTE | 2020-03-16 13:04 | Diagnostic Imaging Report ---
INDICATION: Dyspnea. Single portable AP view of the chest is obtained with comparison made to study of 03/11/2020. Overall heart size and pulmonary vascularity remain within normal limits. There are patchy peripheral densities in the lower half of both lungs which may represent groundglass pneumonitis. There is no evidence of pneumothorax or definite pleural fluid. IMPRESSION: Mild patchy groundglass densities involving the lower lobes to greatest extent likely represent areas of pneumonitis. Dictated by: Dictated on workstation # [id number]
[2020-03-16 13:11] LABS: HEMOGLOBIN 12.3 G/DL (13.3-17.7); MEAN CORPUSCULAR HEMOGLOBIN 29 PG (25-34); WHITE BLOOD COUNT 9.7 10^3/uL (4.3-11.0)
[2020-03-16 13:12] LABS: BASOPHILS % (AUTO) 0 % (0-10); EOSINOPHILS % (AUTO) 0 % (0-10); HEMATOCRIT 36 % (40-54); LYMPHOCYTES # (AUTO) 0.6 X 10^3 (1.0-4.0); LYMPHOCYTES % (AUTO) 6 % (12-44); MEAN CORPUSCULAR HGB CONC 34 G/DL (32-36); MEAN CORPUSCULAR VOLUME 86 FL (80-99); MEAN PLATELET VOLUME 11.1 FL (7.4-10.4); MONOCYTES # (AUTO) 0.7 X 10^3 (0.0-1.0); MONOCYTES % (AUTO) 7 % (0-12); NEUTROPHILS # (AUTO) 8.3 X 10^3 (1.8-7.8); NEUTROPHILS % (AUTO) 86 % (42-75); PLATELET COUNT 202 10^3/uL (130-400)
[2020-03-16 13:36] LABS: ALANINE AMINOTRANSFERASE 12 U/L (0-55); ALBUMIN 3.9 GM/DL (3.2-4.5); ALKALINE PHOSPHATASE 84 U/L (40-136); BILIRUBIN,TOTAL 0.5 MG/DL (0.1-1.0); BUN/CREATININE RATIO 25; CALCIUM 9.1 MG/DL (8.5-10.1); CARBON DIOXIDE 27 MMOL/L (21-32); CHLORIDE 100 MMOL/L (98-107); CREATININE SERUM 1.69 MG/DL (0.60-1.30); GFR ESTIMATED 39; GLUCOSE 100 MG/DL (70-105); POTASSIUM 3.6 MMOL/L (3.6-5.0); SODIUM 139 MMOL/L (135-145); TOTAL PROTEIN 6.3 GM/DL (6.4-8.2)
[2020-03-16 13:53] LABS: BAND NEUTROPHILS 3 %; BASOPHILS % (MANUAL) 0 %; EOSINOPHILS % (MANUAL) 0 %; LYMPHOCYTES % (MANUAL) 3 %; MONOCYTES % (MANUAL) 6 %; NEUTROPHILS % (MANUAL) 88 %; RBC MORPH NORMAL
[2020-03-16 14:00] VITALS: BP 133/63
--- NOTE | 2020-03-16 14:00 | NUR ---
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 Questions answered. Follow up with PCP and return to ED prn.
== END 2020-03-16 14:00 | disposition home or self-care (01) ==
LOC: EDUNIT# 12:10 → ER FS 12:14
DX: U07.1 COVID-19 (principal); Z85.79 Personal history of other malignant neoplasms of lymphoid, hematopoietic and related tissues
CPT/HCPCS: 36415; 71045; 80053; 84484; 85007; 85027; 93005

== ENCOUNTER → 2021-07-22 | Outpatient (CLI) | payer MEDICARE, OTHER ==
[2021-07-22 19:13] LABS: BACTERIA,URINE FEW /HPF; BILIRUBIN,URINE NEGATIVE (NEGATIVE); CLARITY,URINE CLEAR; COLOR,URINE YELLOW; GLUCOSE, URINE (UA) NEGATIVE (NEGATIVE); HYALINE CASTS, URINE 0-2 /LPF; KETONES,URINE NEGATIVE (NEGATIVE); LEUKOCYTE ESTERASE ,URINE NEGATIVE (NEGATIVE); NITRITE,URINE NEGATIVE (NEGATIVE); PROTEIN,URINE NEGATIVE (NEGATIVE)
== END ==
LOC: LAB FS 18:46
PROVIDERS: ATTEND Family Medicine
DX: R35.0 Frequency of micturition (principal); R39.15 Urgency of urination
CPT/HCPCS: 81000; 87088